=== PATIENT | female | born 1975 | race Two or more races ===

== ENCOUNTER 2022-10-20 16:12 | Emergency (ER) | payer OTHER ==
[~2022-10-20] VITALS: Ht 172.7 cm; Wt 65.8 kg
[2022-10-20] MEDS ORDERED: DICLOFENAC SODI75 MG PO (22:08)
== END 2022-10-20 22:33 | disposition home or self-care (01) ==
LOC: ER 16:12
DX: N83.209 Unspecified ovarian cyst, unspecified side (principal); R10.31 Right lower quadrant pain; Z20.822 Contact with and (suspected) exposure to COVID-19